=== PATIENT | male | born 1945 | race Caucasian/White ===

== ENCOUNTER 2017-06-15 12:19 | Observation (INO) | payer OTHER ==
[~2017-06-15] VITALS: Ht 177.8 cm; Wt 97.8 kg
[~2017-06-15 12:19] MED LIST: AVELOX400 MG PO; Aspirin E.C. PO; BAYER CHILDREN'81 M1 PO; CELEXA40 MG PO; CHLORDIAZEPOXI1 EACH PO; COMBIVENT RESPIM4 GM IH; CRESTOR10 MG PO; HYDROCODON-ACE1 EAC8 PO; HYDROCODONE PO; JANUMET 50/11 TABLET PO; LO-DOSE ASPIRIN81 M1 PO; LYRICA75 MG PO; NEURONTIN600 MG PO; NEXIUM40 MG PO; Neurontin PO; TYLENOL WITH C1 EACH PO; VYTORIN 10-201 EACH PO; ZESTORETIC 20-1 EAC1 PO
[2017-06-15 13:36] LABS: BASOPHIL (%) 0.3 % (0-1); EOSINOPHIL (%) 1.6 % (0-5); EOSINOPHIL COUNT 0.1 K/uL (0-0.3); HEMATOCRIT 40.4 % (38.0-50.0); HEMOGLOBIN 14.1 G/DL (12.5-16.6); IMMATURE GRANULOCYTE (%) 0.6 % (0.0-0.7); LYMPHOCYTE (%) 24.2 % (15-42); LYMPHOCYTE COUNT 2.1 K/uL (1.0-2.8); MCH 32.8 PG (29.0-34.0); MCHC 34.9 G/DL (30.0-36.0); MONOCYTE (%) 8.8 % (3-12); MONOCYTE COUNT 0.8 K/uL (0-0.8); NEUTROPHIL (%) 64.5 % (45-76); NEUTROPHIL COUNT 5.5 K/uL (1.8-6.4); PLATELET COUNT 214 K/uL (156-360); RBC DIS.WIDTH-CV 12.4 % (11.8-14.6); WHITE BLOOD COUNT 8.6 K/uL (4.1-10.2)
[2017-06-15 13:45] LABS: PTT 26.7 SEC (25-37)
[2017-06-15 13:47] LABS: ALBUMIN 3.8 g/dL (3.2-4.8); CHLORIDE 106 mEq/L (99-109); POTASSIUM 3.5 mEq/L (3.7-5.4); SODIUM 135 mEq/L (136-147)
[2017-06-15 13:48] LABS: AMYLASE 71 IU/L (1-118)
[2017-06-15 13:50] LABS: GLUCOSE 83 mg/dL (70-99); TOTAL PROTEIN 6.3 g/dL (6.4-8.3)
[2017-06-15 13:52] LABS: TOTAL BILIRUBIN 0.5 mg/dL (0.0-1.0)
[2017-06-15 13:53] LABS: ALKALINE PHOSPHATASE 79 IU/L (3-129); GFR ESTIMATE (CALCULATED) > 59 mL/min/ (58.99-99999); SERUM ETHYL ALCOHOL < 10 mg/dL
[2017-06-15 13:54] LABS: UREA NITROGEN (BUN) 17 mg/dL (9-23)
[2017-06-15 13:55] LABS: AST (GOT) 17 IU/L (2-34)
[2017-06-15 13:56] LABS: ALT (GPT) 17 IU/L (3-49)
[2017-06-15 13:57] LABS: LIPASE 59 U/L (1.0-51.0)
[2017-06-15 13:59] LABS: TROP-I INTERPRETATION NEGATIVE; TROPONIN-I < 0.01 ng/mL (0.0-0.30)
[2017-06-15 15:56] LABS: APPEARANCE CLEAR ((CLEAR)); BILIRUBIN NEGATIVE; BLOOD MODERATE; COLOR YELLOW ((YELLOW)); GLUCOSE (STRIP) NEGATIVE; KETONES NEGATIVE; LEUKOCYTES NEGATIVE; NITRITE NEGATIVE; PROTEIN (STRIP) NEGATIVE; SPECIFIC GRAVITY 1.031 (1.000-1.030); UROBILINOGEN 0.2 MG/DL (0.2-1.0)
[2017-06-15 16:01] LABS: BACTERIA NONE SEEN /HPF; EPITHELIAL CELLS NONE SEEN /HPF; MUCUS NONE SEEN /LPF; RED BLOOD CELLS TNTC /HPF (0-5); UCUL ADDED? YES; WHITE BLOOD CELLS 0-5 /HPF (0-5)
[2017-06-15 16:15] LABS: AMPHETAMINE NEGATIVE (500 ng/mL); BARBITURATES NEGATIVE (200 ng/mL); BENZODIAZEPINES NEGATIVE (150 ng/mL); BUPRENORPHINE NEGATIVE (10 ng/mL); COCAINE NEGATIVE (150 ng/mL); METHADONE NEGATIVE (200 ng/mL); METHAMPHETAMINE NEGATIVE (500 ng/mL); OPIATES (MORPHINE) NEGATIVE (100 ng/mL); OXYCODONE NEGATIVE (100 ng/mL); PHENCYCLIDINE NEGATIVE (25 ng/mL); PROPOXYPHENE NEGATIVE (300 ng/mL); THC CANNABINOIDS NEGATIVE (50 ng/mL); TRICYCLIC ANTIDEPRESSANTS NEGATIVE (300 ng/mL)
[2017-06-15] MEDS ORDERED: LYRICA150 MG PO (19:17)
[2017-06-15] MEDS ORDERED: ATORVASTATIN CA40 MG PO (19:17)
[2017-06-15] MEDS ORDERED: FLOMAX0.4 MG PO (19:17)
[2017-06-15 21:59] VITALS: BP 119/75
[2017-06-15 22:20] LABS: TROP-I INTERPRETATION NEGATIVE; TROPONIN-I < 0.01 ng/mL (0.0-0.30)
[2017-06-16 05:54] LABS: HEMATOCRIT 39.7 % (38.0-50.0); HEMOGLOBIN 13.2 G/DL (12.5-16.6); MCH 32.4 PG (29.0-34.0); MCHC 33.2 G/DL (30.0-36.0); MCV 97.5 FL (86-99); PLATELET COUNT 211 K/uL (156-360); RBC DIS.WIDTH-CV 12.7 % (11.8-14.6); RBC DIS.WIDTH-SD 45.3 % (39-53); RED BLOOD COUNT 4.07 M/uL (4.00-5.50); WHITE BLOOD COUNT 6.3 K/uL (4.1-10.2)
[2017-06-16 05:58] LABS: TROP-I INTERPRETATION NEGATIVE; TROPONIN-I < 0.01 ng/mL (0.0-0.30)
[2017-06-16 06:18] LABS: CHLORIDE 111 MEQ/L (99-109); CREATININE 0.9 MG/DL (0.6-1.3); GFR ESTIMATE (CALCULATED) > 59 mL/min/ (58.99-99999); GLUCOSE 117 mg/dL (70-99); POTASSIUM 4.3 MEQ/L (3.7-5.4); SODIUM 143 MEQ/L (136-147); UREA NITROGEN (BUN) 19 mg/dL (9-23)
[2017-06-16 07:07] VITALS: BP 121/73
[2017-06-16] MEDS ORDERED: CEFTIN500 MG PO (12:19)
== END 2017-06-16 12:55 | disposition home or self-care (01) ==
LOC: EME 12:19 → EDOF 18:48 → ENRESERV 18:50 → 5WEST 21:31
PROVIDERS: Emergency Medicine; Hospitalist
DX: R07.9 Chest pain, unspecified (principal); I10 Essential (primary) hypertension; E78.5 Hyperlipidemia, unspecified; E11.40 Type 2 diabetes mellitus with diabetic neuropathy, unspecified; N40.0 Benign prostatic hyperplasia without lower urinary tract symptoms; R42 Dizziness and giddiness; Z87.891 Personal history of nicotine dependence; Z79.82 Long term (current) use of aspirin; K21.9 Gastro-esophageal reflux disease without esophagitis; G89.29 Other chronic pain; M54.9 Dorsalgia, unspecified; R31.9 Hematuria, unspecified; R30.0 Dysuria; E87.6 Hypokalemia; E87.1 Hypo-osmolality and hyponatremia; Z90.49 Acquired absence of other specified parts of digestive tract; Z96.651 Presence of right artificial knee joint; Z82.49 Family history of ischemic heart disease and other diseases of the circulatory system; Z82.5 Family history of asthma and other chronic lower respiratory diseases; Z83.3 Family history of diabetes mellitus; Z88.8 Allergy status to other drugs, medicaments and biological substances; Z91.09 Other allergy status, other than to drugs and biological substances; Z88.5 Allergy status to narcotic agent
CPT/HCPCS: 70450; 71275; 80048; 80053; 81003; 82150; 83690; 84484; 85025; 85027; 85379; 85610; 85730; 86850; 86900; 86901; 87086; 93005; 99281; 99285; G0378; G0480; J0696; J1644